=== PATIENT | female | born 1980 | race Hispanic/Latino ===

== ENCOUNTER 2018-01-05 10:56 | Day surgery (SDC) | payer OTHER ==
[2018-01-01 09:50] VITALS: BMI 23.5
[2018-01-05] MEDS ORDERED: Propofol 10 mg/ml Inj (20 ML) ONE (11:19)
[2018-01-05] MEDS ORDERED: Rocuronium 10 mg/ml (5 ml) ONE (11:20)
[2018-01-05] MEDS ORDERED: Succinylcholine 200 mg/10 ml Inj IV ONE (11:20)
[2018-01-05] MEDS ORDERED: Midazolam 2 MG/2 ML VIAL ONE (11:26)
[2018-01-05] MEDS ORDERED: Lactated Ringer's 1,000 ML IV ONE ×3 (12:05→12:10)
[2018-01-05 12:13] LABS: HEMOGLOBIN 12.3 g/dL (12.0-16.0); MEAN CELL VOLUME 88.1 fl (81.0-99.0); MEAN CORPUSCULAR HEMOGLOBIN 29.5 pg (27.0-31.0); MEAN CORPUSCULAR HGB CONC 33.5 g/dL (33.0-37.0); RBC 4.16 Mil/uL (3.80-5.20); RED CELL DISTRIBUTION WIDTH 13.2 % (11.5-14.5); WHITE BLOOD COUNT 6.7 K/uL (4.8-10.8)
[2018-01-05] MEDS: Bupivacaine 0.5% Inj(30mL) ONE ×2 (12:15→12:50)
[2018-01-05] MEDS ORDERED: Dexamethasone 4 mg/1 ml ONE (13:42)
[2018-01-05] MEDS: HYDROmorphone 0.5 mg/0.5 ml ISec IVP PRN ×4 (14:10→15:45)
[2018-01-05] MEDS ORDERED: Oxycodone/Acetaminophen 5/325 mg Tab PO PRN (14:39)
[2018-01-05 15:16] VITALS: RESP 18
[2018-01-05 17:17] VITALS: O2SAT 99
[2018-01-05 19:53] VITALS: TEMP 98
[2018-01-05 19:57] VITALS: BP 113/68; PULSE 86
--- NOTE | 2018-01-06 09:13 | OP ---
PROCEDURE DATE: 01/05/2018 PREOPERATIVE DIAGNOSES: 1. Pelvic pain. 2. Dysmenorrhea. 3. Dyspareunia. 4. Rule out endometriosis. POSTOPERATIVE DIAGNOSES: 1. Pelvic pain. 2. Dysmenorrhea. 3. Dyspareunia. 4. Rule out endometriosis. 5. Pelvic endometriosis. PROCEDURE: Cystoscopy with bilateral ureteral catheterization and injection of dye and a diagnostic hysteroscopy, robotic da Deidra laparoscopy, excision of endometriosis and right ureterolysis. SURGEON: Jeyson Lamar MD PART TIME: Dr. Nolasco, PGY-1 TYPE OF ANESTHESIA: General endotracheal. ESTIMATED BLOOD LOSS: Minimal. COMPLICATIONS: None. DESCRIPTION OF PROCEDURE: After adequate anesthesia was obtained, the patient was placed in dorsal lithotomy position. She was prepped and draped and the surgeon gowned and gloved. Extreme attention was placed in padding every area prone to compression on the patient as well as avoiding excessive flexion or extension over hips in the lithotomy position. At this point, a timeout was taken according to the hospital policy and the attention was in the vaginal area where cystoscope was inserted into the bladder. The bladder was then distended with 200 mL of saline and both ureters were identified to be in the normal anatomical position. The bladder was appeared to be free of any lesions. Attention was first on the right hand side where the right ureter was cannulized with a 5 Stateless open ended catheter to the distal ureter and 5 mL of IC-Green were injected. Attention was on the left hand side where again 5 mL of IC-Green were instilled into the distal ureter after inserting a catheter. At this point, the cystoscope was removed, a Ocampo was placed into the bladder. Attention was in the vaginal area where a speculum was placed in the vagina. The anterior lip of the cervix was grasped. The cervix was gently dilated and a hysteroscope was inserted into the uterine cavity. The cavity appeared to be normal, there was no evidence of endometritis and the cavity was regular in size with no polyps or fibroids. At this point, attention was on the abdominal side where after regowning and regloving and used an open laparoscopy technique was made on making an incision in the umbilicus and then entering the peritoneum in a blunt fashion. A cannula was inserted and abdomen insufflated. The pelvis was visualized with revealing evidence of endometriosis implants on the left hand side, peritoneal wall, left ovarian fossa, posterior cervix, right ovarian fossa, the right ovary was adherent to the right pelvic side wall with a thick band of adhesion and endometriosis. Mostly the implants were superficial and some of them were black and some of them were white. The upper abdomen was also visualized, appeared to be normal. The appendix was normal. Under direct visualization, 3 additional port were inserted in left upper quadrant, left mid quadrant and right upper quadrant, the da Deidra Xi robot was then docked and the procedure started. At this point, first it was in the left hand side; the ovary was elevated after identifying the ureter and area of endometriosis was identified in the ovarian fossa, the peritoneum was grasped and the area of endometriosis was progressively dissected off and sent to pathology. An additional area of endometriosis was identified in the posterior aspect of the cervix and posterior of vagina. A square area of endometriosis of peritoneum containing inflammatory changes was also sent to pathology after excision. Attention was then on right hand side, the ovary was elevated, the thick adhesions between the ovary and right pelvic side were lysed and an area of endometriosis was identified under side of the ovary. After identifying the ureter, the peritoneum was entered. The uterus was lateralized and a dissection of peritoneum was performed excising an area of endometriosis which was sent to pathology. An additional area of endometriosis was identified in the right ovarian fossa, right overlying in the uterine artery, this area was dissected off again and sent to pathology as a full sample. At this point she was checked for hemostasis and appeared to be excellent. The anterior compartment was also identified and appear to be normal. Irrigation was performed. A hemostasis was excellent. At this point, the da Deidra robot was undocked, the abdomen desufflated. The instruments removed. The incision closed in layer with 0 PDS for the fascia and 4-0 Monocryl for the skin. At the end of the procedure all tapes and instruments counts are correct. The patient tolerated procedure well and was taken to recovery room in excellent condition. Jeyson Lamar MD [facility]ICThe[facility]
== END 2018-01-05 21:10 | disposition home or self-care (01) ==
LOC: H.OPSURG 10:56 → H.MEDSURG1 20:12 → H.OPSURG 21:10
PROVIDERS: ATTEND Obstetrics & Gynecology Reproductive Endocrinology
DX: N80.0 Endometriosis of uterus (principal); F32.9 Major depressive disorder, single episode, unspecified; R10.2 Pelvic and perineal pain; N94.6 Dysmenorrhea, unspecified; N80.1 Endometriosis of ovary; N94.10 Unspecified dyspareunia
CPT/HCPCS: 36415; 58662; 85027; 86850; 86900; 88305; C1729; J0330; J0690; J1100; J1170; J2001; J2250; J2405; J2704; J2765; J3010; J7030; J7040; J7120